=== PATIENT | male | born 1965 | race Caucasian/White ===

== ENCOUNTER 2016-07-03 22:07 | Emergency (ER) | payer OTHER ==
[~2016-07-03] VITALS: Ht 190.5 cm; Wt 127.6 kg
[~2016-07-03 22:07] MED LIST: ECOTRIN325 MG PO; MOTRIN600 MG PO; MULTIPLE VITAM1 EACH PO; ULTRACET1 TABLET PO; ZESTORETIC 20-1 EAC1 NG; antifungal PO
[2016-07-03 23:33] LABS: HEMATOCRIT 42.5 % (38.0-50.0); MCH 28.9 PG (29.0-34.0); MCHC 33.6 G/DL (30.0-36.0); MCV 85.9 FL (86-99); MEAN PLAT.VOLUME 9.3 uM^3 (9.0-12.4); PLATELET COUNT 180 K/uL (156-360); RBC DIS.WIDTH-SD 44.1 % (39-53); RED BLOOD COUNT 4.95 M/uL (4.00-5.50); WHITE BLOOD COUNT 3.9 K/uL (4.1-10.2)
[2016-07-03 23:45] LABS: CHLORIDE 101 mEq/L (99-109); POTASSIUM 4.3 mEq/L (3.7-5.4); SODIUM 137 mEq/L (136-147)
[2016-07-03 23:47] LABS: GLUCOSE 85 mg/dL (70-99)
[2016-07-03 23:48] LABS: ANION GAP 9 MEQ/L (2-14)
[2016-07-03 23:51] LABS: GFR ESTIMATE (CALCULATED) > 59 mL/min/
[2016-07-03 23:52] LABS: UREA NITROGEN (BUN) 18 mg/dL (9-23)
[2016-07-04 00:29] LABS: INFLUENZA A VIRAL ANTIGEN NEGATIVE; INFLUENZA B VIRAL ANTIGEN POSITIVE
[2016-07-04] MEDS ORDERED: PHENERGAN1.25 MG/ML PO (00:37)
[2016-07-04 00:40] LABS: TROP-I INTERPRETATION NEGATIVE; TROPONIN-I 0.01 ng/mL (0.0-0.30)
[2016-07-04] MEDS ORDERED: ZOFRAN4 MG PO (00:43)
[2016-07-04 01:00] VITALS: BP 107/70
== END 2016-07-04 01:01 | disposition home or self-care (01) ==
LOC: EME 22:07
PROVIDERS: Emergency Medicine
DX: J10.1 Influenza due to other identified influenza virus with other respiratory manifestations (principal); J06.9 Acute upper respiratory infection, unspecified; I10 Essential (primary) hypertension; Z79.82 Long term (current) use of aspirin
CPT/HCPCS: 71020; 80048; 84484; 85027; 87502; 93005; 99281; 99283

== ENCOUNTER 2016-07-26 21:11 | Emergency (ER) | payer OTHER ==
[~2016-07-26] VITALS: Ht 190.5 cm; Wt 127.8 kg
[~2016-07-26 21:11] MED LIST changes: +PHENERGAN1.25 MG/ML PO; +ZOFRAN4 MG PO
[2016-07-26 21:30] VITALS: BP 149/83
[2016-07-26] MEDS ORDERED: ULTRAM50 MG PO (23:50)
[2016-07-26] MEDS ORDERED: FLEXERIL10 MG PO (23:50)
== END 2016-07-27 00:18 | disposition home or self-care (01) ==
LOC: EME 21:11 → RME 21:11
DX: M25.462 Effusion, left knee (principal); Z88.5 Allergy status to narcotic agent
CPT/HCPCS: 73564; 99281; 99285